=== PATIENT | female | born 1980 | race Hispanic/Latino ===

== ENCOUNTER 2020-08-23 21:43 | Emergency (ER) | payer MEDICAID ==
[2020-08-23] MEDS ORDERED: SODIUM CHLORIDE 0.9% 1000ML 1,000 ML IV ONE (21:44)
[2020-08-23] MEDS ORDERED: PROMETHAZINE HCL 25 MG/ML 1ML AMPULE IM ONE (21:44)
[2020-08-23 22:22] LABS: BASOPHILS % (AUTO) 1.5 % (0.0-5.0); EOSINOPHILS % (AUTO) 2.8 % (0.0-8.0); HEMATOCRIT 38.5 % (36-48); LYMPHOCYTES % (AUTO) 56.5 % (21.0-51.0); MEAN CORPUSCULAR HEMOGLOBIN 29.8 pg (27.0-33.0); MEAN CORPUSCULAR HGB CONC 33.2 g/dL (32.0-36.0); MEAN CORPUSCULAR VOLUME 89.7 fL (79-99); MONOCYTES % (AUTO) 7.9 % (3.0-13.0); NEUTROPHILS % (AUTO) 30.4 % (40.0-77.0); PLATELET COUNT (AUTO) 226 K/uL (130-400); RED BLOOD CELL COUNT(AUTO) 4.29 MIL/uL (4.00-5.50); RED CELL DISTRIBUTION WIDTH 13.2 % (11.0-15.5); WHITE BLOOD COUNT (AUTO) 6.5 K/uL (4.8-10.8)
[2020-08-23] MEDS ORDERED: KETOROLAC TROMETHAMINE 30MG/ML ONE (22:31)
[2020-08-23] MEDS ORDERED: CYCLOBENZAPRINE HCL 10 MG TABLET ONE (22:32)
[2020-08-23 22:33] LABS: CREATININE 0.9 mg/dL (0.5-1.5)
[2020-08-23 22:38] LABS: ALBUMIN 3.6 g/dL (3.5-5.0); BILIRUBIN,TOTAL 0.5 mg/dL (0.2-1.0); TOTAL PROTEIN, SERUM 7.5 g/dL (6.0-8.3)
== END 2020-08-23 23:32 | disposition home or self-care (01) ==
LOC: EDH 21:43
DX: G44.209 Tension-type headache, unspecified, not intractable (principal); J45.909 Unspecified asthma, uncomplicated
CPT/HCPCS: 36415; 80053; 84702; 85025; 96365; 96375; 99284; J1885; J2550; J7030

== ENCOUNTER 2021-11-16 05:38 | Observation (INO) | payer MEDICAID ==
[2021-11-15 12:19] LABS: EOSINOPHILS % (AUTO) 3.2 % (0.0-8.0); HEMATOCRIT 38.1 % (36-48); LYMPHOCYTES % (AUTO) 27.7 % (21.0-51.0); MEAN CORPUSCULAR HEMOGLOBIN 28.9 pg (27.0-33.0); MEAN CORPUSCULAR HGB CONC 33.1 g/dL (32.0-36.0); MEAN CORPUSCULAR VOLUME 87.4 fL (79-99); MONOCYTES % (AUTO) 8.1 % (3.0-13.0); NEUTROPHILS % (AUTO) 59.4 % (40.0-77.0); PLATELET COUNT (AUTO) 239 K/uL (130-400); RED BLOOD CELL COUNT(AUTO) 4.36 MIL/uL (4.00-5.50); RED CELL DISTRIBUTION WIDTH 12.8 % (11.0-15.5); WHITE BLOOD COUNT (AUTO) 6.2 K/uL (4.8-10.8)
[2021-11-15 12:58] VITALS: BP 142/82
[~2021-11-16] VITALS: Ht 167.6 cm; Wt 70.9 kg
[2021-11-16] VITALS (27 sets, daily range): BP systolic 112–172; BP diastolic 70–109
[~2021-11-16 05:38] MED LIST: ALBU8.5H8 IH; MONT-39 PO
[2021-11-16] MEDS ORDERED: LACTATED RINGERS 1000ML 1,000 ML IV ONE (05:53)
[2021-11-16] MEDS ORDERED: CEFAZOLIN SODIUM 1 GM VIAL ONE (06:47)
[2021-11-16] MEDS ORDERED: MIDAZOLAM HCL 1 MG/ML 2ML VIAL ONE (07:04)
[2021-11-16] MEDS ORDERED: LIDOCAINE PF 100MG/5ML (2%) SYRINGE 5ML ONE (07:04)
[2021-11-16] MEDS ORDERED: PROPOFOL 10 MG/ML 20ML VIAL IV ONE ×2 (07:04→07:37)
[2021-11-16] MEDS ORDERED: FENTANYL CITRATE PF 50 MCG/1 ML 2ML VIAL ONE ×2 (07:04→07:16)
[2021-11-16] MEDS ORDERED: ROCURONIUM BROMIDE 10MG/1ML 5ML VL ONE (07:04)
[2021-11-16] MEDS ORDERED: ONDANSETRON 4MG INJ ONE (07:15)
[2021-11-16] MEDS ORDERED: DEXAMETHASONE SOD PHOSPHATE 4 MG/ML 1ML VIAL ONE (07:15)
[2021-11-16] MEDS ORDERED: CEFAZOLIN SODIUM 2 GM VIAL IV ONE (07:15)
[2021-11-16] MEDS ORDERED: KETOROLAC 30MG VIAL (30MG/ML) ONE (07:43)
[2021-11-16] MEDS ORDERED: NEOSTIGMINE 5MG/5ML SYR IV ONE (07:55)
[2021-11-16] MEDS ORDERED: GLYCOPYRROLATE 1 MG/5 ML SYRINGE ONE (07:55)
[2021-11-16] MEDS ORDERED: LACTATED RINGERS 1000ML 1,000 ML IV SCH (08:00)
[2021-11-16] MEDS ORDERED: ENALAPRILAT DIHYDRATE 1.25MG/ML 1ML VIAL IV ONE (09:00)
[2021-11-16] MEDS ORDERED: MEPERIDINE-PF 25 MG/ML SYG ONE ×2 (09:10→09:38)
[2021-11-16] MEDS ORDERED: PROMETHAZINE HCL 25 MG/ML 1ML AMPULE IM PRN (11:00)
[2021-11-16] MEDS ORDERED: IBUPROFEN 600 MG TABLET PO PRN (11:00)
[2021-11-16] MEDS ORDERED: ONDANSETRON 4MG INJ IVP PRN (11:00)
[2021-11-16] MEDS ORDERED: ACETAMINOPHEN WITH CODEINE 1 TAB TAB PO PRN (11:00)
[2021-11-16] MEDS ORDERED: BISACODYL 10 MG SUPP.RECT RC PRN (11:00)
[2021-11-16] MEDS: PROMETHAZINE HCL 25 MG/ML 1ML AMPULE IM PRN ×2 (11:56→19:48)
[2021-11-16] MEDS: MEPERIDINE-PF 75 MG/ML SYG IM PRN ×2 (11:57→19:49)
[2021-11-16] MEDS: DEXTROSE 5 %-0.45 % NACL 1,000 ML IV PRN (18:51)
[2021-11-16] MEDS: SIMETHICONE 80 MG TAB.CHEW PO PRN (21:18)
[2021-11-16] MEDS: DOCUSATE SODIUM 100 MG CAP PO PRN (21:18)
[2021-11-17] MEDS: DEXTROSE 5 %-0.45 % NACL 1,000 ML IV PRN (02:54)
[2021-11-17 03:51] VITALS: BP 129/71
[2021-11-17 05:22] LABS: HEMATOCRIT 34.2 % (36-48); MEAN CORPUSCULAR HEMOGLOBIN 29.4 pg (27.0-33.0); MEAN CORPUSCULAR HGB CONC 33.9 g/dL (32.0-36.0); MEAN CORPUSCULAR VOLUME 86.8 fL (79-99); RED BLOOD CELL COUNT(AUTO) 3.94 MIL/uL (4.00-5.50); RED CELL DISTRIBUTION WIDTH 12.7 % (11.0-15.5); WHITE BLOOD COUNT (AUTO) 13.3 K/uL (4.8-10.8)
[2021-11-17 07:32] VITALS: BP 132/76
[2021-11-17] MEDS: DOCUSATE SODIUM 100 MG CAP PO PRN (08:42)
[2021-11-17] MEDS: SIMETHICONE 80 MG TAB.CHEW PO PRN (08:42)
[2021-11-17] MEDS ORDERED: ACET-2079 PO (09:59)
[2021-11-17 11:11] VITALS: BP 133/89
== END 2021-11-17 12:40 | disposition home or self-care (01) ==
LOC: DAH 05:38 → OBSVTOIN 05:39 → INTOOBSV 05:39 → DAH 05:39 → DAHIP 05:39 → WSH 10:10
PROVIDERS: ADMIT Obstetrics & Gynecology; ATTEND Obstetrics & Gynecology
DX: N92.1 Excessive and frequent menstruation with irregular cycle (principal); Z20.822 Contact with and (suspected) exposure to COVID-19; N94.6 Dysmenorrhea, unspecified; D25.9 Leiomyoma of uterus, unspecified; K46.9 Unspecified abdominal hernia without obstruction or gangrene; J45.909 Unspecified asthma, uncomplicated; Z79.899 Other long term (current) drug therapy; Z90.710 Acquired absence of both cervix and uterus
CPT/HCPCS: 36415 ×2; 58263; 85025; 85027; 86850; 86900; 86901; 87635; 88307; 96372; A4215; A4221; A4222; A4223; A4351; A4606; A4663; A4930; C9803; G0378 ×29; G0379; J0690 ×2; J1100; J2175 ×4; J2250; J2405; J2550 ×2; J2710; J3010 ×2; J3490 ×6; J7120 ×2; J1885; J2001; J2704

== ENCOUNTER 2022-09-30 06:06 | Emergency (ER) | payer BC, MEDICAID ==
[~2022-09-30] VITALS: Ht 167.6 cm; Wt 68.9 kg
[~2022-09-30 06:06] MED LIST changes: +ACET-2079 PO
[2022-09-30 06:29] LABS: HEMATOCRIT 38.2 % (36-48); MEAN CORPUSCULAR HEMOGLOBIN 30.1 pg (27.0-33.0); MEAN CORPUSCULAR HGB CONC 35.3 g/dL (32.0-36.0); MEAN CORPUSCULAR VOLUME 85.3 fL (79-99); MONOCYTES % (AUTO) 8.9 % (3.0-13.0); NEUTROPHILS % (AUTO) 58.6 % (40.0-77.0); PLATELET COUNT (AUTO) 228 K/uL (130-400); RED BLOOD CELL COUNT(AUTO) 4.48 MIL/uL (4.00-5.50); RED CELL DISTRIBUTION WIDTH 11.9 % (11.0-15.5); WHITE BLOOD COUNT (AUTO) 5.7 K/uL (4.8-10.8)
[2022-09-30 06:55] LABS: ALBUMIN 3.7 g/dL (3.5-5.0); CREATININE 0.9 mg/dL (0.5-1.5); POTASSIUM 3.5 mmol/L (3.5-5.1); TOTAL PROTEIN, SERUM 6.7 g/dL (6.0-8.3)
[2022-09-30 07:06] LABS: APPEARANCE,URINE SL CLOUDY (CLEAR); BILIRUBIN,URINE NEGATIVE (NEGATIVE); COLOR,URINE YELLOW (YELLOW); GLUCOSE, URINE (UA) NEGATIVE (NEGATIVE); KETONES,URINE NEGATIVE (NEGATIVE); LEUKOCYTE ESTERASE ,URINE SMALL Leu/uL (NEGATIVE); OCCULT BLOOD,URINE TRACE-INTACT (NEGATIVE); PROTEIN,URINE TRACE mg/dL (NEGATIVE); UROBILINOGEN,URINE 0.2 mg/dL (0.2-1.0)
[2022-09-30 07:07] LABS: NITRATE,URINE NEGATIVE (NEGATIVE)
[2022-09-30 07:18] LABS: BACTERIA,URINE Few /HPF (None Seen)
[2022-09-30 07:39] VITALS: BP 137/94
[2022-09-30] MEDS ORDERED: IBUP-2070 PO (07:57)
[2022-09-30] MEDS ORDERED: KETOROLAC 30MG VIAL (30MG/ML) IVP ONE (08:00)
== END 2022-09-30 08:41 | disposition home or self-care (01) ==
LOC: EDH 06:06
DX: R07.89 Other chest pain (principal); R03.0 Elevated blood-pressure reading, without diagnosis of hypertension; R73.9 Hyperglycemia, unspecified; J45.909 Unspecified asthma, uncomplicated; Z79.1 Long term (current) use of non-steroidal anti-inflammatories (NSAID); Z79.899 Other long term (current) drug therapy; Z90.710 Acquired absence of both cervix and uterus
CPT/HCPCS: 99285; 96374; 71045; 84484; 80053; 83690; 85025; 81001; 36415; 93005; J1885

== ENCOUNTER 2023-12-22 07:53 | Emergency (ER) | payer BC, MEDICAID, OTHER ==
[~2023-12-22] VITALS: Ht 170.2 cm; Wt 66.2 kg
[~2023-12-22 07:53] MED LIST changes: +IBUP-2070 PO
[2023-12-22 08:16] LABS: BASOPHILS # (AUTO) 0.04 K/uL (0.00-0.20); BASOPHILS % (AUTO) 0.3 % (0.0-5.0); EOSINOPHILS # (AUTO) 0.01 K/uL (0.00-0.70); EOSINOPHILS % (AUTO) 0.1 % (0.0-8.0); HEMATOCRIT 41.6 % (36-48); IMMATURE GRANULOCYTE ABSOLUTE 0.04 K/uL (0-1); LYMPHOCYTES # (AUTO) 1.1 K/uL (1.0-4.8); LYMPHOCYTES % (AUTO) 7.6 % (21.0-51.0); MEAN CORPUSCULAR HEMOGLOBIN 30.4 pg (27.0-33.0); MEAN CORPUSCULAR HGB CONC 34.9 g/dL (32.0-36.0); MEAN CORPUSCULAR VOLUME 87.2 fL (79-99); MONOCYTES # (AUTO) 0.5 K/uL (0.1-1.0); MONOCYTES % (AUTO) 3.7 % (3.0-13.0); NEUTROPHILS # (AUTO) 12.9 K/uL (1.8-7.7); PLATELET COUNT (AUTO) 239 K/uL (130-400); RED BLOOD CELL COUNT(AUTO) 4.77 MIL/uL (4.00-5.50); RED CELL DISTRIBUTION WIDTH 11.9 % (11.0-15.5); WHITE BLOOD COUNT (AUTO) 14.7 K/uL (4.8-10.8)
[2023-12-22 08:20] LABS: APPEARANCE,URINE CLEAR (CLEAR); BILIRUBIN,URINE NEGATIVE (NEGATIVE); COLOR,URINE LIGHT-YELLOW (YELLOW); GLUCOSE, URINE (UA) NEGATIVE (NEGATIVE); KETONES,URINE NEGATIVE (NEGATIVE); LEUKOCYTE ESTERASE ,URINE NEGATIVE Leu/uL (NEGATIVE); NITRATE,URINE NEGATIVE (NEGATIVE); OCCULT BLOOD,URINE NEGATIVE (NEGATIVE); PH,URINE 5.5 (5.0-8.0); PROTEIN,URINE NEGATIVE (NEGATIVE); UROBILINOGEN,URINE 0.2 mg/dL (0.2-1.0)
[2023-12-22 08:21] LABS: ADD UA MICROSCOPIC NO
[2023-12-22] MEDS: ONDANSETRON 4MG INJ IVP ONE (08:21)
[2023-12-22] MEDS: FAMOTIDINE 20MG VIAL IV ONE (08:21)
[2023-12-22] MEDS: LACTATED RINGERS 1000ML 1,848 ML IV ONE (08:22)
[2023-12-22 08:28] LABS: RAPID GROUP A STREP negative (NEGATIVE)
[2023-12-22 08:31] LABS: CREATININE 0.8 mg/dL (0.5-1.0); POTASSIUM 3.6 mmol/L (3.5-5.1)
[2023-12-22 08:33] LABS: SARS-CoV-2, RNA, NAAT NEGATIVE SARS CoV-2 (NEGATIVE)
[2023-12-22 08:35] LABS: ALBUMIN 4.1 g/dL (3.5-5.0); BILIRUBIN,TOTAL 1.3 mg/dL (0.2-1.0)
[2023-12-22 08:38] LABS: INFLUENZA TYPE A Negative For Type A (NEGATIVE); INFLUENZA TYPE B Negative For Type B (NEGATIVE)
[2023-12-22 11:59] VITALS: BP 152/95; PULSE 102; RESP 17; O2SAT 98
[2023-12-22] MEDS ORDERED: FAMO-136 PO (11:59)
[2023-12-22] MEDS ORDERED: POLY17PO4 PO (11:59)
[2023-12-22] MEDS ORDERED: METO-296 PO (11:59)
== END 2023-12-22 12:31 | disposition home or self-care (01) ==
LOC: EDH 07:53
DX: K80.50 Calculus of bile duct without cholangitis or cholecystitis without obstruction (principal); J45.909 Unspecified asthma, uncomplicated; M79.18 Myalgia, other site; Z20.822 Contact with and (suspected) exposure to COVID-19; Z79.899 Other long term (current) drug therapy; Z98.890 Other specified postprocedural states; Z90.710 Acquired absence of both cervix and uterus
CPT/HCPCS: 99285; 96374; 76705; 87635; 96375; 80053; 83690; 85025; 87880; 87804 ×2; 81003; 36415; J7120; J3490; J2405